=== PATIENT | male | born 1990 | race Caucasian/White ===

== ENCOUNTER 2017-10-19 19:11 | Emergency (ER) | payer OTHER ==
[~2017-10-19] VITALS: Ht 177.8 cm; Wt 68.5 kg
--- NOTE | 2017-10-19 20:23 | ULTRASOUND REPORT ---
EXAMINATION: US SCROTUM CLINICAL INFORMATION: Testicular pain. COMPARISON: None TECHNIQUE: A sonogram of the scrotum was performed assessing lyons-scale appearance and color Doppler flow. Spectral analysis and Doppler interrogation was performed. FINDINGS: RIGHT: Right testicle measures 4.6 x 2.8 x 3.1 cm, volume 20.9 mL. Parenchymal echotexture is normal. No focal testicular parenchymal lesions are visualized. Normal symmetric intratesticular flow is visualized. Right epididymal head is normal in size. No right hydrocele or varicocele is seen. LEFT: Left testicle measures 5.2 x 2.3 x 2.9 cm, volume 24.6 mL. Parenchymal echotexture is normal. No focal testicular parenchymal lesions are visualized. Normal symmetric intratesticular flow is visualized. Left epididymal head is normal in size. There is a 2 mm left epididymal head cyst. No left hydrocele or varicocele is seen. IMPRESSION: Normal testes. 2 mm left epididymal head cyst.
[2017-10-19 20:26] LABS: ABSOLUTE BASOPHIL COUNT 0.1 /CUMM (0.0-0.2); ABSOLUTE EOSINOPHIL COUNT 0.1 /CUMM (0.0-0.7); ABSOLUTE GRANULOCYTE CT 2.9 /CUMM (1.4-6.5); ABSOLUTE LYMPH COUNT 1.4 /CUMM (1.2-3.4); ABSOLUTE MONOCYTE COUNT 0.4 /CUMM (0.10-0.60); BASOPHIL % 1.2 % (0.0-2.0); EOSINOPHIL % 1.9 % (0-5); GRANULOCYTE % 60.2 % (42.2-75.2); HEMATOCRIT 43.9 % (42-52); MEAN CORPUSCULAR HGB CONC 33.9 G/DL (33.0-37.0); MEAN CORPUSCULAR VOLUME 85.5 FL (80.0-94.0); MEAN PLATELET VOLUME 8.4 FL (7.4-10.4); PLATELET COUNT 177 /CUMM (130-400); RBC DISTRIBUTION WIDTH 12.6 % (11.5-14.5); RED BLOOD CELL CT 5.13 /CUMM (4.70-6.10); WHITE BLOOD CELL COUNT 4.8 /CUMM (4.8-10.8)
--- NOTE | 2017-10-19 21:50 | ED GENERAL ADULT ---
History of Present Illness General Chief Complaint: Male Genitourinary Problems Stated Complaint: SENT BY URGENT CARE FOR TESTICULAR PAIN Source: patient Exam Limitations: no limitations Vital Signs & Intake/Output Vital Signs & Intake/Output Vital Signs Date Time Temp Pulse Resp B/P B/P Pulse O2 O2 Flow FiO2 Mean Ox Delivery Rate 10/19 2200 70 20 128/71 97 10/19 1917 97.1 74 18 136/90 97 Room Air Allergies Coded Allergies: No Known Allergies (10/19/17) Reconcile Medications No Known Home Medications Triage Note: PT STATES THAT HE WAS WORKING OUT LAST NIGHT AND EVERY SINCE HE HAS BEEN HAVING TESTICULAR PAIN , STATES THAT IT IS LIKE " THERE 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 PT WAS EVALUATED AT URGENT CARE IN [place] AND SENT TO ER Triage Nurses Notes Reviewed? yes Onset: Gradual Duration: months Timing: constant HPI: 27-year-old otherwise healthy male presenting with bilateral testicular pain 4 months. States that the pain is constant every day, but sometimes will be worse than others. Has noticed the pain is sometimes worse with movement. Was at the gym last night and had acute worsening of his testicles, states that it felt like they were being squeezed inside of a vice. Was evaluated at an urgent care earlier today who sent him in for rule out torsion. Denies fevers, abdominal pain, dysuria, penile discharge, scrotal swelling. Occasionally tries ibuprofen for pain, but states that he does not like to take medications. Denies genital trauma. (Adriana Osuna) Past History Travel History Traveled to [place] past 21 day No Medical History Any Pertinent Medical History? 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 No (Adriana Osuna) Review of Systems Review of Systems Constitutional: Reports: no symptoms. EENTM: Reports: no symptoms. Respiratory: Reports: no symptoms. Cardiovascular: Reports: no symptoms. GI: Reports: no symptoms. Genitourinary: Reports: see HPI. Musculoskeletal: Reports: no symptoms. Skin: Reports: no symptoms. Neurological/Psychological: Reports: no symptoms. Hematologic/Endocrine: Reports: no symptoms. Immunologic/Allergic: Reports: no symptoms. All Other Systems: Reviewed and Negative (Adriana Osuna) Physical Exam Physical Exam General Appearance: well developed/nourished, no apparent distress, alert, awake , comfortable Comments: Gen.: Well-nourished, well-developed, no acute distress. Head: Normocephalic, atraumatic. Eyes: Normal inspection bilaterally Ears: Normal inspection bilaterally Nose: Normal inspection Neck: Normal inspection Lungs: clear to auscultation bilaterally, normnal breath sounds Heart: regular rate and rhythm Abdomen: soft and non-tender Genitals: No penile discharge, no genital lesions, no scrotal swelling, no testicular tenderness to palpation, no inguinal lymphadenopathy Extremities: Normal inspection Neurologic: alert and oriented x3, steady gait Skin: warm and dry Psychiatric: Normal mood and affect, no apparent delusions or hallucinations, behavior appropriate Core Measures ACS in differential dx? No CVA/TIA Diagnosis: No Sepsis Present: No Sepsis Focused Exam Completed? No (Adriana Osuna) Progress Differential Diagnoses I considered the following diagnoses in my evaluation of the patient: [ Testicular torsion versus epididymitis versus urethritis versus hernia versus UTI] Plan of Care: Orders Procedure Date/time Status URINALYSIS 10/19 1917 Complete CBC WITHOUT DIFFERENTIAL 10/19 1917 Complete BASIC METABOLIC PANEL 10/19 1917 Complete Laboratory Tests 10/19/172039: Urine Color YEL, Urine Clarity CLEAR, Urine pH 7.0, Ur Specific [place] 1.010, Urine Protein NEG, Urine Ketones NEG, Urine Nitrite NEG, Urine Bilirubin NEG, Urine Urobilinogen 0.2, Ur Leukocyte Esterase NEG, Ur Microscopic EXAM NOT REQUIRED, Urine Hemoglobin NEG, Urine Glucose NEG 10/19/171999: Anion Gap 9, Estimated GFR > 60, BUN/Creatinine Ratio 17.0, Glucose 93, Calcium 9.7, CBC w Diff NO MAN DIFF REQ, RBC 5.13, MCV 85.5, MCH 29.0, MCHC 33.9, RDW 12.6, MPV 8.4, Gran % 60.2, Lymphocytes % 29.3, Monocytes % 7.4, Eosinophils % 1.9, Basophils % 1.2, Absolute Granulocytes 2.9, Absolute Lymphocytes 1.4, Absolute Monocytes 0.4, Absolute Eosinophils 0.1, Absolute Basophils 0.1 US impression Normal testes. 2 mm left epididymal head cyst. Patient informed of the above incidental findings Labs unremarkable, including normal UA Patient states that he had STD testing 8 months ago, was negative at that time, and has had no sexual encounters since. Therefore STD testing was declined as there is low concern at this time. No clear etiology for patient's symptoms, but low concern for emergent pathology. All testing was unremarkable and exam is benign. Given urology follow-up for further evaluation and given strict return precautions. Offered Rx pain medication, but declining at this time. Initial ED EKG: none (Adriana Osuna) Departure Departure Disposition: HOME OR SELF CARE Condition: Stable Clinical Impression Primary Impression: Testicular pain Referrals: Nick MUNIZ,Meng Ruiz MD,Kirk (PCP/Family) Additional Instructions: Follow-up with urology for reevaluation. Return to the emergency department for any new or worsening symptoms. Departure Forms: Customer Survey General Discharge Information Prescriptions: Current Visit Scripts No Known Home Medications (Adriana Osuna) PA/[employer] Co-Sign Statement Statement: ED Attending supervision documentation- [] I saw and evaluated the patient. I have also reviewed all the pertinent lab results and diagnostic results. I agree with the findings and the plan of care as documented in the PA's/[employer]'s documentation. [X] I have reviewed the ED Record and agree with the PA's/[employer]'s documentation. [] Additions or exceptions (if any) to the PAs/[employer]'s note and plan are summarized below: [] (Corey Newman DO) Critical Care Note Critical Care Note Critical Care Time: non-applicable (Adriana Osuna)
[2017-10-19 22:00] VITALS: BP 128/71
== END 2017-10-19 22:00 ==
LOC: ERH 19:11
PROVIDERS: Physician Assistant
DX: N50.812 Left testicular pain (principal); N50.811 Right testicular pain
CPT/HCPCS: 81003